=== PATIENT | male | born 1995 | race Caucasian/White ===

== ENCOUNTER → 2018-07-29 21:00 | Emergency (ER) | payer BC ==
[~2018-07-29 21:00] MED LIST: Cephalexin CAP* 500 MG PO ONE
--- NOTE | 2018-07-29 21:57 | ED ---
Laceration/Wound HPI - HPI Summary HPI Summary: 23-year-old male presents with foreign body in his left middle finger. He states that he was using a knife and by accident dropped it and stabbed his hand and it poked through his left middle finger. Area continues to bleed. Tetanus up-to-date. No numbness or tingling. No other injury. - History of Current Complaint Stated Complaint: LT HAND LAC Time Seen by Provider: 07/29/18 21:23 Pain Intensity: 2 - Allergy/Home Medications Allergies/Adverse Reactions: Allergies Allergy/AdvReac Type Severity Reaction Status Date / Time No Known Allergies Allergy Verified 07/29/18 21:12 PMH/Surg Hx/FS Hx/Imm Hx Endocrine/Hematology History: Denies: Hx Anticoagulant Therapy Respiratory History: Denies: Hx Asthma Infectious Disease History: No Infectious Disease History: Denies: Traveled Outside the [place] in Last 30 Days - Family History Known Family History: Negative: Diabetes - Social History Alcohol Use: Occasionally Substance Use Type: Reports: None Review of Systems Negative: Fever Negative: Chest Pain Negative: Shortness Of Breath Positive: Other - foreign body in left hand All Other Systems Reviewed And Are Negative: Yes Physical Exam Triage Information Reviewed: Yes Vital Signs On Initial Exam: Initial Vitals Temp Pulse Resp BP Pulse Ox 98.6 F 61 18 151/73 96 07/29/18 21:07 07/29/18 21:07 07/29/18 21:07 07/29/18 21:07 07/29/18 21:07 Vital Signs Reviewed: Yes Appearance: Positive: Well-Appearing Skin: Positive: Warm, Dry, Other - knife stuck in left proximal phalanx of middle finger Head/Face: Positive: Normal Head/Face Inspection Eyes: Positive: Normal, Conjunctiva Clear ENT: Positive: Pharynx normal Respiratory/Lung Sounds: Positive: Clear to Auscultation, Breath Sounds Present Cardiovascular: Positive: Normal, RRR Musculoskeletal: Positive: Strength/ROM Intact - left hand, Other - good pulses Neurological: Positive: Normal Psychiatric: Positive: Normal Procedures - Laceration/Wound Repair 1 Location: Other - left middle finger Description: Irregular Anesthesia: Digital, 1.0% Length, Depth and Shape: 1 1/2cm by 1/2cm and 1cm by 1/2cm Irrigated w/ Saline (ccs): 200 Laceration/Wound Explored: foreign body removed - knife Suture Type: Prolene Number of Sutures: 3 - 2 in larger laceration and 1 other Sterile Dressing Applied?: No - telfa Diagnostics - Vital Signs Vital Signs Temp Pulse Resp BP Pulse Ox 07/29/18 21:07 98.6 F 61 18 151/73 96 - Laboratory Lab Statement: Any lab studies that have been ordered have been reviewed, and results considered in the medical decision making process. Laceration Repair Course/Dx - Course Course Of Treatment: 23-year-old male presents with foreign body in his left middle finger. He states that he was using a knife and by accident dropped it and stabbed his hand and it poked through his left middle finger. Area continues to bleed. Tetanus up-to-date. No numbness or tingling. No other injury. On exam has a knife through the subcutaneous fat of the left middle finger. Performed a digital block and remove knife. Clean area and place 3 sutures. 2 sutures in 1 1/2 by 1/cm laceration and 1 suture in 1cm laceration. Patient understands agrees the plan. - Differential Dx Differental Diagnoses: Abrasion, Avulsion, Foreign Body, Laceration - Clinical Impression Provider Diagnoses: Foreign body (FB) in soft tissue, Laceration Discharge - Sign-Out/Discharge Documenting (check all that apply): Patient Departure - Discharge Plan Condition: Good Disposition: HOME Prescriptions: Cephalexin CAP* [Keflex CAP*] 500 mg PO BID #9 cap Patient Education Materials: Care For Your Stitches (ED) Referrals: No Primary Care Phys,NOPCP [Primary Care Provider] - Additional Instructions: take keflex twice a day for 5 days Take Tylenol or ibuprofen for pain every 6 hours as needed Keep area clean and dry for 24 hours Return to ED or primary in 8-10 days to have sutures removed Return to ED if develop signs of infection such as fever, spreading redness, or pus. - Billing Disposition and Condition Condition: GOOD Disposition: Home
[2018-07-29 22:11] VITALS: BP 121/74
== END | disposition home or self-care (01) ==
LOC: EDBD 21:00 → ED 21:00
DX: S61.223A Laceration with foreign body of left middle finger without damage to nail, initial encounter (principal); W26.0XXA Contact with knife, initial encounter; Y92.9 Unspecified place or not applicable
CPT/HCPCS: 12001; 99283; A9270-GY